=== PATIENT | female | born 1965 | race Caucasian/White ===

== ENCOUNTER 2021-12-04 18:16 | Inpatient (IN) ==
[2021-12-04 19:12] LABS: BASOPHILS % (AUTO) 0.3 % (0.2-1.0); EOSINOPHILS # (AUTO) 0.1 x10^3/uL (0.0-0.2); EOSINOPHILS % (AUTO) 0.6 % (0.9-2.9); HEMOGLOBIN 15.5 g/dL (12.0-16.0); LYMPHOCYTES # (AUTO) 1.6 X10^3/uL (1.3-2.9); LYMPHOCYTES % (AUTO) 16.4 % (21.0-51.0); MEAN CORPUSCULAR HEMOGLOBIN 30.9 pg (27.0-34.0); MEAN CORPUSCULAR HGB CONC 33.7 g/dL (33.0-35.0); MEAN CORPUSCULAR VOLUME 91.8 fL (80.0-100.0); MONOCYTES # (AUTO) 0.8 x10^3/uL (0.3-0.8); MONOCYTES % (AUTO) 8.1 % (0.0-13.0); NEUTROPHILS # (AUTO) 7.1 x10^3/uL (2.2-4.8); NEUTROPHILS % (AUTO) 74.6 % (42.0-75.0); RED BLOOD COUNT 5.01 X10^6/uL (3.5-5.4); WHITE BLOOD COUNT 9.6 X10^3/uL (3.6-10.0)
[2021-12-04 19:23] LABS: ALANINE AMINOTRANSFERASE 51 Units/L (12-78); ALBUMIN 3.9 g/dL (3.4-5.0); ALKALINE PHOSPHATASE 102 Units/L (46-116); AMYLASE 61 Units/L (25-115); ASPARTATE AMINO TRANSFERASE 53 Units/L (15-37); BLOOD UREA NITROGEN 27 mg/dL (7-18); CALCIUM 9.2 mg/dL (8.5-10.1); CARBON DIOXIDE 23.4 mmol/L (21-32); CHLORIDE 99 mmol/L (98-107); CREATININE 1.66 mg/dL (0.55-1.02); LIPASE 50 Units/L (73-393); MAGNESIUM 1.8 mg/dL (1.7-2.9); SODIUM 139 mmol/L (136-145); eGFR NON BLACK RACES 34 (>60)
[2021-12-04] MEDS: DILAUDID INJ IVP PRN (21:15)
[2021-12-04] MEDS: NS 1,000 ML IV 1,000 ML IV SCH (21:15)
[2021-12-04] MEDS: ZOFRAN INJ 4 MG VIAL IVP PRN (21:18)
[2021-12-04 22:07] VITALS: BMI 27.3
[2021-12-04 23:50] LABS: BILIRUBIN,URINE 1+ (NEGATIVE); BLOOD/HEMOGLOBIN,URINE 1+ (NEGATIVE); GLUCOSE, URINE NEGATIVE (NEGATIVE); KETONES,URINE 1+ (NEGATIVE); LEUKOCYTE ESTERASE ,URINE NEGATIVE (NEGATIVE); NITRITES,URINE NEGATIVE (NEGATIVE); PROTEIN,URINE 3+ (NEGATIVE); UROBILINOGEN,URINE NORMAL (NORMAL)
[2021-12-05] LABS: APPEARANCE,URINE CLEAR (CLEAR); COLOR,URINE AMBER (YELLOW)
[2021-12-05 00:01] LABS: BACTERIA,URINE NEGATIVE /HPF (NEGATIVE); CALCIUM OXALATE CRYSTALS,UR MANY /HPF (NEGATIVE); SQUAMOUS EPITHELIAL CELL,UR RARE /HPF (NEGATIVE)
[2021-12-05] MEDS: DILAUDID INJ IVP PRN ×4 (00:20→23:58)
[2021-12-05 06:33] LABS: ALANINE AMINOTRANSFERASE 56 Units/L (12-78); ALKALINE PHOSPHATASE 83 Units/L (46-116); ASPARTATE AMINO TRANSFERASE 56 Units/L (15-37); BLOOD UREA NITROGEN 34 mg/dL (7-18); CARBON DIOXIDE 21.3 mmol/L (21-32); CHLORIDE 106 mmol/L (98-107); COR CA(FOR HYPOALB) 8.8 mg/dL (8.5-10.1); CREATININE 1.75 mg/dL (0.55-1.02); SODIUM 138 mmol/L (136-145); TOTAL PROTEIN 6.3 g/dL (6.4-8.2); eGFR NON BLACK RACES 32 (>60)
[2021-12-05 07:27] LABS: BASOPHILS % (AUTO) 0.5 % (0.2-1.0); EOSINOPHILS # (AUTO) 0.2 x10^3/uL (0.0-0.2); EOSINOPHILS % (AUTO) 3.2 % (0.9-2.9); LYMPHOCYTES # (AUTO) 0.9 X10^3/uL (1.3-2.9); LYMPHOCYTES % (AUTO) 17.9 % (21.0-51.0); MEAN CORPUSCULAR HEMOGLOBIN 30.9 pg (27.0-34.0); MEAN CORPUSCULAR HGB CONC 33.6 g/dL (33.0-35.0); MEAN CORPUSCULAR VOLUME 91.8 fL (80.0-100.0); MEAN PLATELET VOLUME 8.4 fL (7.4-11.0); MONOCYTES # (AUTO) 0.5 x10^3/uL (0.3-0.8); MONOCYTES % (AUTO) 9.4 % (0.0-13.0); NEUTROPHILS # (AUTO) 3.5 x10^3/uL (2.2-4.8); RED BLOOD COUNT 4.03 X10^6/uL (3.5-5.4); RED CELL DISTRIBUTION WIDTH 14.8 % (11.6-16.5); WHITE BLOOD COUNT 5.1 X10^3/uL (3.6-10.0)
[2021-12-05 07:29] LABS: HEMOGLOBIN 12.5 g/dL (12.0-16.0)
[2021-12-05] MEDS: ZOFRAN INJ 4 MG VIAL IVP PRN ×2 (08:01→23:58)
[2021-12-05] MEDS: NS 1,000 ML IV 1,000 ML IV SCH ×2 (10:11→13:25)
--- NOTE | 2021-12-05 14:37 | CT ---
HISTORYABD PAINSTUDYABDOMEN/PELVIS W/O CONCOMPARISONCT performed on 12/04/2021TECHNIQUEMultiple axial images of the abdomen and pelvis were obtained from the lung bases to the pubic symphysis without the administration of IV contrast. Dose reduction techniques including Automated Exposure Control (AEC) and adjustment of mA and kV were utilized.FINDINGS[There is round atelectasis and/or scarring within the left lower lobe.] Heart size is normal. Focal fat infiltration adjacent to the false form ligament. No focal hepatic lesion identified given limitations of a non contrast examination. Previous cholecystectomy. Bile ducts are normal caliber. The spleen, pancreas and adrenal glands are normal. Kidneys are unremarkable. Upper GI tract demonstrates no evidence mass or obstruction. Previously dilated loops of small bowel are collapsed. Previously visualized contrast within the small bowel has progressed into the proximal mid colon without significant residual contrast within the small bowel. Again noted is curvilinear collapsed loop of small bowel within the left lower quadrant.Urinary bladder is partially collapsed. No pelvic or adnexal mass. The rectum and colon are unremarkable. Trace amount of pelvic free fluid. Abdominal aorta is normal in caliber. No adenopathy within the abdomen or pelvis. There is a small ventral abdominal hernia in the setting of prior hernia repair with a small amount of fluid within the umbilical subcutaneous tissues. Review of bone windows demonstrates no acute osseous abnormality. Injection granulomas are noted within the right and left gluteal subcutaneous tissues.IMPRESSIONNo residual fluid dilatation of the small bowel with contrast now within the proximal and mid colon excluding a complete or high-grade small-bowel obstruction. There are persistent curvilinear collapsed loop of small bowel within the left lower quadrant potentially representing an intermittent low-grade obstruction in setting of adhesive disease.Umbilical hernia repair with a small amount of fluid within the tiny residual hernia within the umbilical subcutaneous tissues.Round atelectasis and/or scarring within the left lower lobe.Additional incidental, nonacute findings as described above.Electronically signed by: JULIA ETIENNE (Dec 05, 2021 14:35:13)
[2021-12-05] MEDS ORDERED: VENTOLIN or PROAIR HFA IN PRN (17:52)
[2021-12-05] MEDS ORDERED: PROVENTIL NEB TX 0.083% 2.5MG/ 3ML NEB PRN (18:05)
--- NOTE | 2021-12-05 18:21 | DR.H&P ---
H&P - History & Physical for Day of: H&P Date: 12/04/21 - Chief Complaint Chief Complaint: Abd pain, N/V/C - History of Present Illness History of Present Illness: Patient is a 56 year old white female who is a direct admit from Dr. Maki office due to nausea vomiting, abdominal pain, and no BM in 3 days. States last BM normal. States emesis appears to be bile. Will admit for observation. Patient had an outpatient CT abdomen at [facility]; re quest report. Patient has a history of bowel and constipation issues. PMH Lymphoma, CASSI, MDD, mulitple other conditions. Denies CP, fever, chills or any other conditions. - Past Medical History Past Medical History: Anxiety, Migraines, Hypertension, Seizures Additional Medical History: CML S/P Stem Cell Transplant. - Past Surgical History Surgical History: Appendectomy, Cholecystectomy, Hysterectomy, Tonsillectomy - Family History Family Medical History: Diabetes Mellitus - Social History Does patient currently use any type of tobacco product: No Have you used tobacco products in the last 12 months: No Type of Tobacco Use: None Alcohol Use: None Drug Use: Prescription Drugs - Medications Home Medications: morphine Allergy (Verified 12/05/21 15:05) prednisone Allergy (Verified 12/05/21 15:05) Sulfa (Sulfonamide Antibiotics) [SULFA] Allergy (Verified 12/05/21 15:05) CONTINUE taking the following medications albuterol sulfate [ProAir HFA] 2 puff INHALATION QID PRN 12/05/21 [History] amitriptyline 225 mg PO QHS 12/05/21 [History] baclofen 10 mg PO QHS 12/05/21 [History] buspirone 10 mg PO BID 12/05/21 [History] dicyclomine 10 mg PO TID 12/05/21 [History] famotidine 40 mg PO QAM 12/05/21 [History] gabapentin 600 mg PO TID 12/05/21 [History] hydroxyzine HCl 25 mg PO QID 12/05/21 [History] indomethacin 25 mg PO BID 12/05/21 [History] levetiracetam 1,500 mg PO TID 12/05/21 [History] linaclotide [Linzess] 72 mcg PO QAM 12/05/21 [History] loratadine 10 mg PO DAILY 12/05/21 [History] meclizine 25 mg PO TID PRN 12/05/21 [History] montelukast 10 mg PO DAILY 12/05/21 [History] omeprazole 40 mg PO BID 12/05/21 [History] ondansetron 8 mg PO TID PRN 12/05/21 [History] topiramate 25 mg PO BID 12/05/21 [History] - Review of Systems Constitutional: See HPI Eyes: See HPI ENT: See HPI Respiratory: See HPI Cardiovascular: See HPI Gastrointestinal: See HPI Genitourinary: See HPI Musculoskeletal: See HPI Skin: See HPI Neurological: See HPI - Physical Exam Vital Signs: Temperature 98.2 F Pulse Rate [Left Radial] 76 Respiratory Rate 20 Blood Pressure [Left Arm] 113/57 O2 Sat by Pulse Oximetry 96 Oriented: Normal, Time, Person, Place Eyes: Normal Ear: Normal Nose: Normal Throat: Normal Respiratory: Clear Throughout Cardiovascular: Normal : Normal Auscultation: Bowel Sounds: Decreased Palpation: Normal Tenderness: Diffuse, Mild Skin: Normal Musculoskeletal: Normal Psychiatric: Normal Mood Description: Calm Affect: Normal Speech Pattern: Clear, Appropriate - Assessment/Plan (1) Abdominal pain Status: Acute Plan: Pain control. IV fluids. ProtonixIV. LAbs. NPO. Nausea control. Obtain CT results from [facility] (2) Nausea & vomiting Status: Acute (3) Constipation Status: Acute (4) Anxiety Status: Chronic (5) History of seizures Status: Chronic Plan: home meds (6) GERD (gastroesophageal reflux disease) Status: Chronic - Allergies Allergies/Adverse Reactions: Allergies Allergy/AdvReac Type Severity Reaction Status Date / Time morphine Allergy Verified 12/05/21 15:05 prednisone Allergy Verified 12/05/21 15:05 Sulfa (Sulfonamide Allergy Verified 12/05/21 15:05 Antibiotics) [SULFA]
--- NOTE | 2021-12-05 18:28 | PCM.PROG ---
Progress Note - Subjective Subjective: Patient is a 56 year old female admitted as per HPI. Patient appears comfortable at time of exam; ie not in extreme pain. Minimal nausea and vomiting. Patient continues to experience pain in abdomen, Reports no BM. Pending UGI SBFT. Continue all orders. - Past Medical Family Social History Past Med/Fam/Surg Hx: No changes since H&P Allergies: Allergies morphine Allergy (Verified 12/05/21 15:05) prednisone Allergy (Verified 12/05/21 15:05) Sulfa (Sulfonamide Antibiotics) [SULFA] Allergy (Verified 12/05/21 15:05) - Review of Systems ROS: No change since H&P - Vital Signs and I&O's Vital Signs: Temperature 98.2 F Pulse Rate [Left Radial] 76 Respiratory Rate 20 Blood Pressure [Left Arm] 113/57 O2 Sat by Pulse Oximetry 96 Intake and Output: Intake & Output 12/02/21 12/03/21 12/04/21 12/05/21 23:59 23:59 23:59 23:59 Intake Total 106 / 106 841 / 841 Output Total 300 / 300 Balance -194 / -194 841 / 841 - Physical Exam Oriented: Normal, Time, Person, Place Eyes: Normal Ear: Normal Nose: Normal Throat: Normal Respiratory: Normal Cardiovascular: Normal : Normal Auscultation: Bowel Sounds: Decreased Palpation: Normal Tenderness: Diffuse, Mild Skin: Normal Musculoskeletal: Normal Psychiatric: Normal Mood Description: Calm Affect: Normal Speech Pattern: Clear, Appropriate - Laboratory and Diagnostics Result Diagrams: 12/05/21 06:04 12/05/21 06:04 Labs: Laboratory WBC 5.1 X10^3/uL (3.6-10.0) 12/05/21 06:04 RBC 4.03 X10^6/uL (3.5-5.4) 12/05/21 06:04 Hgb 12.5 g/dL (12.0-16.0) D 12/05/21 06:04 Hct 37.0 % (36.0-47.0) 12/05/21 06:04 MCV 91.8 fL (80.0-100.0) 12/05/21 06:04 MCH 30.9 pg (27.0-34.0) 12/05/21 06:04 MCHC 33.6 g/dL (33.0-35.0) 12/05/21 06:04 RDW 14.8 % (11.6-16.5) 12/05/21 06:04 Plt Count 189 X10^3/uL (150.0-450.0) 12/05/21 06:04 MPV 8.4 fL (7.4-11.0) 12/05/21 06:04 Neut % (Auto) 69.0 % (42.0-75.0) 12/05/21 06:04 Lymph % (Auto) 17.9 % (21.0-51.0) L 12/05/21 06:04 [place] % (Auto) 9.4 % (0.0-13.0) 12/05/21 06:04 Eos % (Auto) 3.2 % (0.9-2.9) H 12/05/21 06:04 Baso % (Auto) 0.5 % (0.2-1.0) 12/05/21 06:04 Neut # (Auto) 3.5 x10^3/uL (2.2-4.8) 12/05/21 06:04 Lymph # (Auto) 0.9 X10^3/uL (1.3-2.9) L 12/05/21 06:04 [place] # (Auto) 0.5 x10^3/uL (0.3-0.8) 12/05/21 06:04 Eos # (Auto) 0.2 x10^3/uL (0.0-0.2) 12/05/21 06:04 Baso # (Auto) 0.0 X10^3/uL (0.0-0.1) 12/05/21 06:04 Absolute Nucleated RBC 0.2 /100WBC 12/05/21 06:04 Sodium 138 mmol/L (136-145) 12/05/21 06:04 Corrected Sodium TNP 12/05/21 06:04 Potassium 4.0 mmol/L (3.5-5.1) 12/05/21 06:04 Chloride 106 mmol/L (98-107) 12/05/21 06:04 Carbon Dioxide 21.3 mmol/L (21-32) 12/05/21 06:04 BUN 34 mg/dL (7-18) H 12/05/21 06:04 Creatinine 1.75 mg/dL (0.55-1.02) H 12/05/21 06:04 Est GFR (MDRD) Af Amer 39 (>60) L 12/05/21 06:04 Est GFR (MDRD) Non-Af 32 (>60) L 12/05/21 06:04 Glucose 84 mg/dL (65-99) 12/05/21 06:04 Calcium 8.0 mg/dL (8.5-10.1) L 12/05/21 06:04 Corrected Calcium 8.8 mg/dL (8.5-10.1) 12/05/21 06:04 Magnesium 1.8 mg/dL (1.7-2.9) 12/04/21 18:54 Total Bilirubin 0.80 mg/dL (0.2-1.0) 12/05/21 06:04 AST 56 Units/L (15-37) H 12/05/21 06:04 ALT 56 Units/L (12-78) 12/05/21 06:04 Alkaline Phosphatase 83 Units/L (46-116) 12/05/21 06:04 Total Protein 6.3 g/dL (6.4-8.2) L 12/05/21 06:04 Albumin 3.0 g/dL (3.4-5.0) L 12/05/21 06:04 Globulin 3.3 g/dL (2.5-4.5) 12/05/21 06:04 Albumin/Globulin Ratio 0.9 Ratio (1.1-2.1) L 12/05/21 06:04 Amylase 61 Units/L (25-115) 12/04/21 18:54 Lipase 50 Units/L (73-393) L 12/04/21 18:54 Specimen Type Clean catch urine 12/04/21 23:12 Urine Color [place] (YELLOW) 12/04/21 23:12 Urine Appearance Clear (CLEAR) 12/04/21 23:12 Urine pH 5.0 (5.0 - 8.0) 12/04/21 23:12 Ur Specific [place] 1.030 (1.000-1.030) 12/04/21 23:12 Urine Protein 3+ (NEGATIVE) 12/04/21 23:12 Urine Glucose (UA) Negative (NEGATIVE) 12/04/21 23:12 Urine Ketones 1+ (NEGATIVE) 12/04/21 23:12 Urine Occult Blood 1+ (NEGATIVE) 12/04/21 23:12 Urine Nitrite Negative (NEGATIVE) 12/04/21 23:12 Urine Bilirubin 1+ (NEGATIVE) 12/04/21 23:12 Urine Urobilinogen Normal (NORMAL) 12/04/21 23:12 Ur Leukocyte Esterase Negative (NEGATIVE) 12/04/21 23:12 Urine RBC 3-5 /HPF (0-3) A 12/04/21 23:12 Urine WBC 0-2 /HPF (0-5) 12/04/21 23:12 Ur Squamous Epith Cells Rare /HPF (NEGATIVE) 12/04/21 23:12 Calcium Oxalate Crystal Many /HPF (NEGATIVE) 12/04/21 23:12 Amorphous Sediment 2+ /HPF (NEGATIVE) 12/04/21 23:12 Urine Bacteria Negative /HPF (NEGATIVE) 12/04/21 23:12 Ur Culture Indicated? No/not indicated 12/04/21 23:12 SARS CoV-2 RNA Rapid ELLIOTT Negative (NEGATIVE) 12/04/21 19:03 - Plan (1) Abdominal pain Status: Acute Plan: Pain control. IV fluids. ProtonixIV. LAbs. NPO. Nausea control. UGI with SBFT pending (2) Nausea & vomiting Status: Acute (3) Constipation Status: Acute (4) Anxiety Status: Chronic (5) History of seizures Status: Chronic Plan: home meds (6) GERD (gastroesophageal reflux disease) Status: Chronic
[2021-12-05] MEDS: KEPPRA TAB 500 MG PO SCH ×2 (18:30→21:21)
[2021-12-05] MEDS: PROTONIX INJ 40 MG VIAL IVP SCH ×2 (18:31→21:20)
[2021-12-06] MEDS: NS 1,000 ML IV 1,000 ML IV SCH ×3 (00:28→13:30)
[2021-12-06] MEDS: KEPPRA TAB 500 MG PO SCH ×2 (05:04→13:30)
[2021-12-06 06:34] LABS: BASOPHILS % (AUTO) 0.6 % (0.2-1.0); EOSINOPHILS # (AUTO) 0.1 x10^3/uL (0.0-0.2); EOSINOPHILS % (AUTO) 2.9 % (0.9-2.9); HEMOGLOBIN 11.6 g/dL (12.0-16.0); LYMPHOCYTES # (AUTO) 0.8 X10^3/uL (1.3-2.9); LYMPHOCYTES % (AUTO) 22.6 % (21.0-51.0); MEAN CORPUSCULAR HEMOGLOBIN 30.6 pg (27.0-34.0); MEAN CORPUSCULAR HGB CONC 33.2 g/dL (33.0-35.0); MEAN PLATELET VOLUME 8.5 fL (7.4-11.0); MONOCYTES # (AUTO) 0.4 x10^3/uL (0.3-0.8); NEUTROPHILS # (AUTO) 2.1 x10^3/uL (2.2-4.8); NEUTROPHILS % (AUTO) 62.9 % (42.0-75.0); RED CELL DISTRIBUTION WIDTH 14.4 % (11.6-16.5); WHITE BLOOD COUNT 3.4 X10^3/uL (3.6-10.0)
[2021-12-06 06:52] LABS: ALANINE AMINOTRANSFERASE 41 Units/L (12-78); ALBUMIN 2.8 g/dL (3.4-5.0); ALKALINE PHOSPHATASE 76 Units/L (46-116); AMYLASE 44 Units/L (25-115); ASPARTATE AMINO TRANSFERASE 27 Units/L (15-37); BLOOD UREA NITROGEN 22 mg/dL (7-18); CALCIUM 7.9 mg/dL (8.5-10.1); CARBON DIOXIDE 22.3 mmol/L (21-32); CHLORIDE 110 mmol/L (98-107); COR CA(FOR HYPOALB) 8.9 mg/dL (8.5-10.1); CREATININE 0.81 mg/dL (0.55-1.02); LIPASE 55 Units/L (73-393); SODIUM 142 mmol/L (136-145); eGFR NON BLACK RACES > 60 (>60)
[2021-12-06] MEDS: DILAUDID INJ IVP PRN ×2 (07:22→15:07)
[2021-12-06] MEDS: ZOFRAN INJ 4 MG VIAL IVP PRN (07:23)
[2021-12-06] MEDS: PROTONIX INJ 40 MG VIAL IVP SCH (08:04)
[2021-12-06] MEDS: CHRONULAC PO SCH ×2 (11:19→13:30)
[2021-12-06] MEDS ORDERED: LINZESS PO ONE ×2 (14:58→16:16)
[2021-12-06] MEDS ORDERED: KEPPRA TAB 500 MG PO ONE (21:30)
[2021-12-06] MEDS ORDERED: PROTONIX INJ 40 MG VIAL IVP ONE (21:30)
[2021-12-06] MEDS ORDERED: CHRONULAC PO ONE (21:30)
[2021-12-06] MEDS ORDERED: ZOFRAN INJ 4 MG VIAL IVP ONE (23:00)
[2021-12-06] MEDS ORDERED: DILAUDID INJ IVP ONE (23:00)
[2021-12-07] MEDS: KEPPRA TAB 500 MG PO SCH ×2 (14:23→21:07)
[2021-12-07] MEDS: DILAUDID INJ IVP PRN ×2 (17:20→20:50)
[2021-12-07] MEDS: ZOFRAN INJ 4 MG VIAL IVP PRN (17:22)
[2021-12-07] MEDS: CHRONULAC PO SCH ×2 (17:23→21:07)
--- NOTE | 2021-12-07 17:38 | PCM.PROG ---
Progress Note Progress Note for Day of Date of Exam: 12/07/21 Subjective Subjective: Patient is a 56 year old female admitted as per HPI. Patient appears comfortable at time of exam; ie not in extreme pain. Minimal nausea and vomiting. Patient continues to experience pain in abdomen, Reports a BM yesterday and earlier in the morning. Continue all orders. Will try and discha rge patient later today if she tolerates solid food. Past Medical Family Social History Past Med/Fam/Surg Hx: No changes since H&P Allergies: Allergies morphine Allergy (Verified 12/05/21 15:05) prednisone Allergy (Verified 12/05/21 15:05) Sulfa (Sulfonamide Antibiotics) [SULFA] Allergy (Verified 12/05/21 15:05) Review of Systems ROS: No change since H&P Vital Signs and I&O's Vital Signs: Temperature 98.1 F Pulse Rate [Left Radial] 78 Respiratory Rate 18 Blood Pressure [Left Arm] 136/67 O2 Sat by Pulse Oximetry 98 Intake and Output: Intake & Output 12/05/21 12/06/21 12/07/21 12/08/21 11:59 11:59 11:59 11:59 Intake Total 527 / 527 [facility] / 2976 860 / 860 1965 Output Total 300 / 300 Balance 227 / 227 [facility] / 2976 860 / 860 1965 Physical Exam Oriented: Normal, Time, Person and Place Eyes: Normal Ear: Normal Nose: Normal Throat: Normal Respiratory: Normal Cardiovascular: Normal : Normal Auscultation: Bowel Sounds: Decreased Tenderness: Diffuse and Mild Skin: Normal Musculoskeletal: Normal Psychiatric: Normal Mood Description: Calm Affect: Normal Speech Pattern: Clear and Appropriate Laboratory and Diagnostics Result Diagrams: 12/06/21 06:10 12/06/21 06:10 Labs: Laboratory WBC 3.4 X10^3/uL (3.6-10.0) L 12/06/21 06:10 RBC 3.80 X10^6/uL (3.5-5.4) 12/06/21 06:10 Hgb 11.6 g/dL (12.0-16.0) L 12/06/21 06:10 Hct 35.0 % (36.0-47.0) L 12/06/21 06:10 MCV 92.0 fL (80.0-100.0) 12/06/21 06:10 MCH 30.6 pg (27.0-34.0) 12/06/21 06:10 MCHC 33.2 g/dL (33.0-35.0) 12/06/21 06:10 RDW 14.4 % (11.6-16.5) 12/06/21 06:10 Plt Count 177 X10^3/uL (150.0-450.0) 12/06/21 06:10 MPV 8.5 fL (7.4-11.0) 12/06/21 06:10 Neut % (Auto) 62.9 % (42.0-75.0) 12/06/21 06:10 Lymph % (Auto) 22.6 % (21.0-51.0) 12/06/21 06:10 [place] % (Auto) 11.0 % (0.0-13.0) 12/06/21 06:10 Eos % (Auto) 2.9 % (0.9-2.9) 12/06/21 06:10 Baso % (Auto) 0.6 % (0.2-1.0) 12/06/21 06:10 Neut # (Auto) 2.1 x10^3/uL (2.2-4.8) L 12/06/21 06:10 Lymph # (Auto) 0.8 X10^3/uL (1.3-2.9) L 12/06/21 06:10 [place] # (Auto) 0.4 x10^3/uL (0.3-0.8) 12/06/21 06:10 Eos # (Auto) 0.1 x10^3/uL (0.0-0.2) 12/06/21 06:10 Baso # (Auto) 0.0 X10^3/uL (0.0-0.1) 12/06/21 06:10 Absolute Nucleated RBC 0.0 /100WBC 12/06/21 06:10 Sodium 142 mmol/L (136-145) 12/06/21 06:10 Corrected Sodium TNP 12/06/21 06:10 Potassium 3.8 mmol/L (3.5-5.1) 12/06/21 06:10 Chloride 110 mmol/L (98-107) H 12/06/21 06:10 Carbon Dioxide 22.3 mmol/L (21-32) 12/06/21 06:10 BUN 22 mg/dL (7-18) H 12/06/21 06:10 Creatinine 0.81 mg/dL (0.55-1.02) 12/06/21 06:10 Est GFR (MDRD) Af Amer > 60 (>60) 12/06/21 06:10 Est GFR (MDRD) Non-Af > 60 (>60) 12/06/21 06:10 Glucose 73 mg/dL (65-99) 12/06/21 06:10 Calcium 7.9 mg/dL (8.5-10.1) L 12/06/21 06:10 Corrected Calcium 8.9 mg/dL (8.5-10.1) 12/06/21 06:10 Magnesium 1.8 mg/dL (1.7-2.9) 12/04/21 18:54 Total Bilirubin 0.40 mg/dL (0.2-1.0) 12/06/21 06:10 AST 27 Units/L (15-37) 12/06/21 06:10 ALT 41 Units/L (12-78) 12/06/21 06:10 Alkaline Phosphatase 76 Units/L (46-116) 12/06/21 06:10 Total Protein 6.0 g/dL (6.4-8.2) L 12/06/21 06:10 Albumin 2.8 g/dL (3.4-5.0) L 12/06/21 06:10 Globulin 3.2 g/dL (2.5-4.5) 12/06/21 06:10 Albumin/Globulin Ratio 0.9 Ratio (1.1-2.1) L 12/06/21 06:10 Amylase 44 Units/L (25-115) 12/06/21 06:10 Lipase 55 Units/L (73-393) L 12/06/21 06:10 Specimen Type Clean catch urine 12/04/21 23:12 Urine Color [place] (YELLOW) 12/04/21 23:12 Urine Appearance Clear (CLEAR) 12/04/21 23:12 Urine pH 5.0 (5.0 - 8.0) 12/04/21 23:12 Ur Specific [place] 1.030 (1.000-1.030) 12/04/21 23:12 Urine Protein 3+ (NEGATIVE) 12/04/21 23:12 Urine Glucose (UA) Negative (NEGATIVE) 12/04/21 23:12 Urine Ketones 1+ (NEGATIVE) 12/04/21 23:12 Urine Occult Blood 1+ (NEGATIVE) 12/04/21 23:12 Urine Nitrite Negative (NEGATIVE) 12/04/21 23:12 Urine Bilirubin 1+ (NEGATIVE) 12/04/21 23:12 Urine Urobilinogen Normal (NORMAL) 12/04/21 23:12 Ur Leukocyte Esterase Negative (NEGATIVE) 12/04/21 23:12 Urine RBC 3-5 /HPF (0-3) A 12/04/21 23:12 Urine WBC 0-2 /HPF (0-5) 12/04/21 23:12 Ur Squamous Epith Cells Rare /HPF (NEGATIVE) 12/04/21 23:12 Calcium Oxalate Crystal Many /HPF (NEGATIVE) 12/04/21 23:12 Amorphous Sediment 2+ /HPF (NEGATIVE) 12/04/21 23:12 Urine Bacteria Negative /HPF (NEGATIVE) 12/04/21 23:12 Ur Culture Indicated? No/not indicated 12/04/21 23:12 SARS CoV-2 RNA Rapid ELLIOTT Negative (NEGATIVE) 12/04/21 19:03 Plan (1) Abdominal pain: Status: Acute Plan: Pain control IV fluids ProtonixIV LAbs NPO Nausea control UGI with SBFT pending (2) Nausea & vomiting: Status: Acute Narrative Support Text: Patient developed Nausea past eating this afternoon. Plan: Will see how patient is doing in am. Will plan on discharge home if she is feeling better. (3) Constipation: Status: Acute Narrative Support Text: Resolved. (4) Anxiety: Status: Chronic Narrative Support Text: Stable. (5) History of seizures: Status: Chronic Plan: home meds (6) GERD (gastroesophageal reflux disease): Status: Chronic
[2021-12-07] MEDS: PROTONIX INJ 40 MG VIAL IVP SCH (20:31)
[2021-12-08] MEDS: CHRONULAC PO SCH ×5 (04:41→21:10)
[2021-12-08] MEDS: DILAUDID INJ IVP PRN ×3 (05:05→21:15)
[2021-12-08] MEDS: ZOFRAN INJ 4 MG VIAL IVP PRN ×3 (05:08→21:20)
[2021-12-08] MEDS: NS 1,000 ML IV 1,000 ML IV SCH ×3 (05:09→21:57)
[2021-12-08] MEDS: KEPPRA TAB 500 MG PO SCH ×3 (05:09→21:10)
[2021-12-08] MEDS: PROTONIX INJ 40 MG VIAL IVP SCH ×2 (08:41→21:10)
--- NOTE | 2021-12-08 08:59 | RAD ---
Exam:KUBIndication: pt states abd is swollen and she is constipatedComparison: [None available]Findings: [Gas distends both the small bowel and colon. Neither demonstrates dilatation. No free air or pneumatosis.No definite mass or abnormal calcification within the abdomen or pelvis.No acute osseous abnormality.Previous cholecystectomy.Impression:Nonspecific bowel gas pattern, gas distention of the small bowel and colon may be within normal limits; however recommend clinical correlation as a mild adynamic ileus is also possible.Electronically signed by: JULIA ETIENNE (Dec 08, 2021 08:57:27)
[2021-12-08] MEDS ORDERED: DULCOLAX SUPPOSITORY 10 MG RECTAL ONE (10:56)
[2021-12-08] MEDS ORDERED: DULCOLAX SUPPOSITORY 10 MG ONE (13:18)
--- NOTE | 2021-12-08 17:10 | PCM.PROG ---
Progress Note Progress Note for Day of Date of Exam: 12/08/21 Subjective Subjective: Patient is a 56 year old female admitted as per HPI. Patient appears comfortable at time of exam; ie not in extreme pain. Reports a BM yesterday and earlier in the morning. Continue all orders. Will try and discharge patient later today if she tolerates solid food. Will check KUB and give Dulcolax suppositories this am. Still with some abdominal pain but better since admission. Past Medical Family Social History Past Med/Fam/Surg Hx: No changes since H&P Allergies: Allergies morphine Allergy (Verified 12/05/21 15:05) prednisone Allergy (Verified 12/05/21 15:05) Sulfa (Sulfonamide Antibiotics) [SULFA] Allergy (Verified 12/05/21 15:05) Review of Systems ROS: No change since H&P Vital Signs and I&O's Vital Signs: Temperature 99.0 F Pulse Rate [Left Radial] 82 Respiratory Rate 20 Blood Pressure [Left Arm] 150/80 O2 Sat by Pulse Oximetry 93 Intake and Output: Intake & Output 12/06/21 12/07/21 12/08/21 12/09/21 11:59 11:59 11:59 11:59 Intake Total 2976 / 2976 860 / 860 3511 / 3511 1053 / 1053 Balance 2976 / 2976 860 / 860 3511 / 3511 1053 / 1053 Physical Exam Oriented: Normal, Time, Person and Place Eyes: Normal Ear: Normal Nose: Normal Throat: Normal Respiratory: Normal Cardiovascular: Normal : Normal Auscultation: Bowel Sounds: Decreased Tenderness: Diffuse and Mild Skin: Normal Musculoskeletal: Normal Psychiatric: Normal Mood Description: Calm Affect: Normal Speech Pattern: Clear and Appropriate Laboratory and Diagnostics Result Diagrams: 12/06/21 06:10 12/06/21 06:10 Labs: Laboratory WBC 3.4 X10^3/uL (3.6-10.0) L 12/06/21 06:10 RBC 3.80 X10^6/uL (3.5-5.4) 12/06/21 06:10 Hgb 11.6 g/dL (12.0-16.0) L 12/06/21 06:10 Hct 35.0 % (36.0-47.0) L 12/06/21 06:10 MCV 92.0 fL (80.0-100.0) 12/06/21 06:10 MCH 30.6 pg (27.0-34.0) 12/06/21 06:10 MCHC 33.2 g/dL (33.0-35.0) 12/06/21 06:10 RDW 14.4 % (11.6-16.5) 12/06/21 06:10 Plt Count 177 X10^3/uL (150.0-450.0) 12/06/21 06:10 MPV 8.5 fL (7.4-11.0) 12/06/21 06:10 Neut % (Auto) 62.9 % (42.0-75.0) 12/06/21 06:10 Lymph % (Auto) 22.6 % (21.0-51.0) 12/06/21 06:10 [place] % (Auto) 11.0 % (0.0-13.0) 12/06/21 06:10 Eos % (Auto) 2.9 % (0.9-2.9) 12/06/21 06:10 Baso % (Auto) 0.6 % (0.2-1.0) 12/06/21 06:10 Neut # (Auto) 2.1 x10^3/uL (2.2-4.8) L 12/06/21 06:10 Lymph # (Auto) 0.8 X10^3/uL (1.3-2.9) L 12/06/21 06:10 [place] # (Auto) 0.4 x10^3/uL (0.3-0.8) 12/06/21 06:10 Eos # (Auto) 0.1 x10^3/uL (0.0-0.2) 12/06/21 06:10 Baso # (Auto) 0.0 X10^3/uL (0.0-0.1) 12/06/21 06:10 Absolute Nucleated RBC 0.0 /100WBC 12/06/21 06:10 Sodium 142 mmol/L (136-145) 12/06/21 06:10 Corrected Sodium TNP 12/06/21 06:10 Potassium 3.8 mmol/L (3.5-5.1) 12/06/21 06:10 Chloride 110 mmol/L (98-107) H 12/06/21 06:10 Carbon Dioxide 22.3 mmol/L (21-32) 12/06/21 06:10 BUN 22 mg/dL (7-18) H 12/06/21 06:10 Creatinine 0.81 mg/dL (0.55-1.02) 12/06/21 06:10 Est GFR (MDRD) Af Amer > 60 (>60) 12/06/21 06:10 Est GFR (MDRD) Non-Af > 60 (>60) 12/06/21 06:10 Glucose 73 mg/dL (65-99) 12/06/21 06:10 Calcium 7.9 mg/dL (8.5-10.1) L 12/06/21 06:10 Corrected Calcium 8.9 mg/dL (8.5-10.1) 12/06/21 06:10 Magnesium 1.8 mg/dL (1.7-2.9) 12/04/21 18:54 Total Bilirubin 0.40 mg/dL (0.2-1.0) 12/06/21 06:10 AST 27 Units/L (15-37) 12/06/21 06:10 ALT 41 Units/L (12-78) 12/06/21 06:10 Alkaline Phosphatase 76 Units/L (46-116) 12/06/21 06:10 Total Protein 6.0 g/dL (6.4-8.2) L 12/06/21 06:10 Albumin 2.8 g/dL (3.4-5.0) L 12/06/21 06:10 Globulin 3.2 g/dL (2.5-4.5) 12/06/21 06:10 Albumin/Globulin Ratio 0.9 Ratio (1.1-2.1) L 12/06/21 06:10 Amylase 44 Units/L (25-115) 12/06/21 06:10 Lipase 55 Units/L (73-393) L 12/06/21 06:10 Specimen Type Clean catch urine 12/04/21 23:12 Urine Color [place] (YELLOW) 12/04/21 23:12 Urine Appearance Clear (CLEAR) 12/04/21 23:12 Urine pH 5.0 (5.0 - 8.0) 12/04/21 23:12 Ur Specific [place] 1.030 (1.000-1.030) 12/04/21 23:12 Urine Protein 3+ (NEGATIVE) 12/04/21 23:12 Urine Glucose (UA) Negative (NEGATIVE) 12/04/21 23:12 Urine Ketones 1+ (NEGATIVE) 12/04/21 23:12 Urine Occult Blood 1+ (NEGATIVE) 12/04/21 23:12 Urine Nitrite Negative (NEGATIVE) 12/04/21 23:12 Urine Bilirubin 1+ (NEGATIVE) 12/04/21 23:12 Urine Urobilinogen Normal (NORMAL) 12/04/21 23:12 Ur Leukocyte Esterase Negative (NEGATIVE) 12/04/21 23:12 Urine RBC 3-5 /HPF (0-3) A 12/04/21 23:12 Urine WBC 0-2 /HPF (0-5) 12/04/21 23:12 Ur Squamous Epith Cells Rare /HPF (NEGATIVE) 12/04/21 23:12 Calcium Oxalate Crystal Many /HPF (NEGATIVE) 12/04/21 23:12 Amorphous Sediment 2+ /HPF (NEGATIVE) 12/04/21 23:12 Urine Bacteria Negative /HPF (NEGATIVE) 12/04/21 23:12 Ur Culture Indicated? No/not indicated 12/04/21 23:12 SARS CoV-2 RNA Rapid ELLIOTT Negative (NEGATIVE) 12/04/21 19:03 Radiology Reviewed: Yes Plan (1) Abdominal pain: Status: Acute Plan: Pain control IV fluids ProtonixIV LAbs NPO Nausea control UGI with SBFT pending (2) Nausea & vomiting: Status: Acute Plan: Will see how patient is doing in am. Will plan on discharge home if she is feeling better. (3) Constipation: Status: Acute (4) Anxiety: Status: Chronic (5) History of seizures: Status: Chronic Plan: home meds (6) GERD (gastroesophageal reflux disease): Status: Chronic
[2021-12-09] MEDS: NS 1,000 ML IV 1,000 ML IV SCH ×4 (01:24→15:51)
[2021-12-09] MEDS: CHRONULAC PO SCH ×5 (03:45→15:52)
[2021-12-09 06:04] LABS: BASOPHILS % (AUTO) 0.5 % (0.2-1.0); EOSINOPHILS # (AUTO) 0.2 x10^3/uL (0.0-0.2); EOSINOPHILS % (AUTO) 7.2 % (0.9-2.9); HEMATOCRIT 36.6 % (36.0-47.0); HEMOGLOBIN 12.4 g/dL (12.0-16.0); LYMPHOCYTES # (AUTO) 1.2 X10^3/uL (1.3-2.9); LYMPHOCYTES % (AUTO) 34.5 % (21.0-51.0); MEAN CORPUSCULAR HEMOGLOBIN 30.8 pg (27.0-34.0); MEAN CORPUSCULAR HGB CONC 33.9 g/dL (33.0-35.0); MONOCYTES # (AUTO) 0.5 x10^3/uL (0.3-0.8); MONOCYTES % (AUTO) 13.5 % (0.0-13.0); NEUTROPHILS # (AUTO) 1.5 x10^3/uL (2.2-4.8); NEUTROPHILS % (AUTO) 44.3 % (42.0-75.0); RED BLOOD COUNT 4.02 X10^6/uL (3.5-5.4); RED CELL DISTRIBUTION WIDTH 14.2 % (11.6-16.5); WHITE BLOOD COUNT 3.3 X10^3/uL (3.6-10.0)
[2021-12-09 06:11] LABS: BLOOD UREA NITROGEN 3 mg/dL (7-18); CALCIUM 8.2 mg/dL (8.5-10.1); CARBON DIOXIDE 23.6 mmol/L (21-32); CHLORIDE 108 mmol/L (98-107); CREATININE 0.64 mg/dL (0.55-1.02); SODIUM 142 mmol/L (136-145); eGFR NON BLACK RACES > 60 (>60)
[2021-12-09] MEDS ORDERED: K-DUR TAB 20 MEQ PO PRN (06:22)
[2021-12-09] MEDS ORDERED: KLOR-CON PO PRN (06:22)
[2021-12-09] MEDS ORDERED: POTASSIUM CHLORIDE LIQ 20 MEQ UDC PO PRN (06:22)
[2021-12-09] MEDS ORDERED: K-RIDER 10 MEQ/NS 100 ML 10 MEQ/100 ML BAG IV PRN (06:22)
[2021-12-09] MEDS ORDERED: POTASSIUM CHL 60 MEQ/NS 0.45% 500 ML IV PRN (06:22)
[2021-12-09] MEDS ORDERED: POTASSIUM CHL 40 MEQ/NS 0.45% 500 ML IV PRN (06:22)
[2021-12-09] MEDS ORDERED: MICRO K EXTEN CAP 10 MEQ PO PRN (06:22)
[2021-12-09] MEDS: PROTONIX INJ 40 MG VIAL IVP SCH ×2 (06:23→09:00)
[2021-12-09] MEDS: KEPPRA TAB 500 MG PO SCH ×3 (06:23→15:53)
[2021-12-09 06:34] LABS: ALANINE AMINOTRANSFERASE 28 Units/L (12-78); ALBUMIN 2.7 g/dL (3.4-5.0); ALKALINE PHOSPHATASE 83 Units/L (46-116); ASPARTATE AMINO TRANSFERASE 22 Units/L (15-37); COR CA(FOR HYPOALB) 9.2 mg/dL (8.5-10.1)
[2021-12-09] MEDS: DILAUDID INJ IVP PRN (11:10)
[2021-12-09] MEDS: ZOFRAN INJ 4 MG VIAL IVP PRN (11:10)
[2021-12-09 12:59] VITALS: BP 136/79
--- NOTE | 2021-12-16 14:34 | PCM.PROG ---
Progress Note - Progress Note for Day of Date of Exam: 12/06/21 - Subjective Subjective: Patient is a 56 year old female admitted as per HPI. Patient appears comfortable at time of exam; ie not in extreme pain. Continue all orders. Patient is receiving lactulose; pending BM. - Past Medical Family Social History Past Med/Fam/Surg Hx: No changes since H&P Allergies: Allergies morphine Allergy (Verified 12/05/21 15:05) prednisone Allergy (Verified 12/05/21 15:05) Sulfa (Sulfonamide Antibiotics) [SULFA] Allergy (Verified 12/05/21 15:05) - Review of Systems ROS: No change since H&P - Vital Signs and I&O's Vital Signs: Temperature 98.3 F Pulse Rate [Left Radial] 80 Respiratory Rate 18 Blood Pressure [Left Arm] 136/79 O2 Sat by Pulse Oximetry 94 - Physical Exam Oriented: Normal, Time, Person, Place Eyes: Normal Ear: Normal Nose: Normal Throat: Normal Respiratory: Normal Cardiovascular: Normal : Normal Auscultation: Bowel Sounds: Decreased Palpation: Normal Tenderness: Diffuse, Mild Skin: Normal Musculoskeletal: Normal Psychiatric: Normal Mood Description: Calm Affect: Normal Speech Pattern: Clear, Appropriate - Laboratory and Diagnostics Result Diagrams: 12/09/21 05:45 12/09/21 12:46 Labs: Laboratory WBC 3.3 X10^3/uL (3.6-10.0) L 12/09/21 05:45 RBC 4.02 X10^6/uL (3.5-5.4) 12/09/21 05:45 Hgb 12.4 g/dL (12.0-16.0) 12/09/21 05:45 Hct 36.6 % (36.0-47.0) 12/09/21 05:45 MCV 91.0 fL (80.0-100.0) 12/09/21 05:45 MCH 30.8 pg (27.0-34.0) 12/09/21 05:45 MCHC 33.9 g/dL (33.0-35.0) 12/09/21 05:45 RDW 14.2 % (11.6-16.5) 12/09/21 05:45 Plt Count 145 X10^3/uL (150.0-450.0) L 12/09/21 05:45 MPV 9.0 fL (7.4-11.0) 12/09/21 05:45 Neut % (Auto) 44.3 % (42.0-75.0) 12/09/21 05:45 Lymph % (Auto) 34.5 % (21.0-51.0) 12/09/21 05:45 [place] % (Auto) 13.5 % (0.0-13.0) H 12/09/21 05:45 Eos % (Auto) 7.2 % (0.9-2.9) H 12/09/21 05:45 Baso % (Auto) 0.5 % (0.2-1.0) 12/09/21 05:45 Neut # (Auto) 1.5 x10^3/uL (2.2-4.8) L 12/09/21 05:45 Lymph # (Auto) 1.2 X10^3/uL (1.3-2.9) L 12/09/21 05:45 [place] # (Auto) 0.5 x10^3/uL (0.3-0.8) 12/09/21 05:45 Eos # (Auto) 0.2 x10^3/uL (0.0-0.2) 12/09/21 05:45 Baso # (Auto) 0.0 X10^3/uL (0.0-0.1) 12/09/21 05:45 Absolute Nucleated RBC 0.2 /100WBC 12/09/21 05:45 Sodium 142 mmol/L (136-145) 12/09/21 05:45 Corrected Sodium TNP 12/09/21 05:45 Potassium 3.6 mmol/L (3.5-5.1) 12/09/21 12:46 Chloride 108 mmol/L (98-107) H 12/09/21 05:45 Carbon Dioxide 23.6 mmol/L (21-32) 12/09/21 05:45 BUN 3 mg/dL (7-18) L 12/09/21 05:45 Creatinine 0.64 mg/dL (0.55-1.02) 12/09/21 05:45 Est GFR (MDRD) Af Amer > 60 (>60) 12/09/21 05:45 Est GFR (MDRD) Non-Af > 60 (>60) 12/09/21 05:45 Glucose 95 mg/dL (65-99) 12/09/21 05:45 Calcium 8.2 mg/dL (8.5-10.1) L 12/09/21 05:45 Corrected Calcium 9.2 mg/dL (8.5-10.1) 12/09/21 05:45 Magnesium 1.5 mg/dL (1.7-2.9) L 12/09/21 05:45 Total Bilirubin 0.20 mg/dL (0.2-1.0) 12/09/21 05:45 AST 22 Units/L (15-37) 12/09/21 05:45 ALT 28 Units/L (12-78) 12/09/21 05:45 Alkaline Phosphatase 83 Units/L (46-116) 12/09/21 05:45 Total Protein 6.0 g/dL (6.4-8.2) L 12/09/21 05:45 Albumin 2.7 g/dL (3.4-5.0) L 12/09/21 05:45 Globulin 3.3 g/dL (2.5-4.5) 12/09/21 05:45 Albumin/Globulin Ratio 0.8 Ratio (1.1-2.1) L 12/09/21 05:45 Amylase 44 Units/L (25-115) 12/06/21 06:10 Lipase 55 Units/L (73-393) L 12/06/21 06:10 Specimen Type Clean catch urine 12/04/21 23:12 Urine Color Ashleigh (YELLOW) 12/04/21 23:12 Urine Appearance Clear (CLEAR) 12/04/21 23:12 Urine pH 5.0 (5.0 - 8.0) 12/04/21 23:12 Ur Specific [place] 1.030 (1.000-1.030) 12/04/21 23:12 Urine Protein 3+ (NEGATIVE) 12/04/21 23:12 Urine Glucose (UA) Negative (NEGATIVE) 12/04/21 23:12 Urine Ketones 1+ (NEGATIVE) 12/04/21 23:12 Urine Occult Blood 1+ (NEGATIVE) 12/04/21 23:12 Urine Nitrite Negative (NEGATIVE) 12/04/21 23:12 Urine Bilirubin 1+ (NEGATIVE) 12/04/21 23:12 Urine Urobilinogen Normal (NORMAL) 12/04/21 23:12 Ur Leukocyte Esterase Negative (NEGATIVE) 12/04/21 23:12 Urine RBC 3-5 /HPF (0-3) A 12/04/21 23:12 Urine WBC 0-2 /HPF (0-5) 12/04/21 23:12 Ur Squamous Epith Cells Rare /HPF (NEGATIVE) 12/04/21 23:12 Calcium Oxalate Crystal Many /HPF (NEGATIVE) 12/04/21 23:12 Amorphous Sediment 2+ /HPF (NEGATIVE) 12/04/21 23:12 Urine Bacteria Negative /HPF (NEGATIVE) 12/04/21 23:12 Ur Culture Indicated? No/not indicated 12/04/21 23:12 SARS CoV-2 RNA Rapid ELLIOTT Negative (NEGATIVE) 12/04/21 19:03 - Plan (1) Abdominal pain Status: Acute Plan: Pain control. IV fluids. ProtonixIV. LAbs. NPO. Nausea control. UGI with SBFT pending (2) Nausea & vomiting Status: Acute Plan: Improving (3) Constipation Status: Acute Qualifiers: Constipation type: slow transit constipation Qualified Code(s): K59.01 - Slow transit constipation (4) Anxiety Status: Chronic (5) History of seizures Status: Chronic Plan: home meds (6) GERD (gastroesophageal reflux disease) Status: Chronic
--- NOTE | 2021-12-16 14:39 | W.DIS.FURT ---
Discharge Plan - Discharge Plan Hospital Course: Admit date 12/05/21 Discharge date 12/09/21 DOS 12/09/21 Admit diagnosis: 1) Abdominal pain (2) Nausea & vomiting (3) Constipation (4) Anxiety (5) History of seizures (6) GERD (gastroesophageal reflux disease) Discharge diagnosis: Same Hospital Course Patient is a 56 year old female who was admitted due to abdominal pain, N/V. Patient has chronic constipation,; multifactoral; likely related to history of abdominal surgery as well as medication induced. Patient was made NPO and given IV fluids. Abdominal imaging did not reveal obstruction. Diet was progressed as tolerated. Patient was given lactulose. Patient had several adequate BMs and tolerated diet and liquids. Patient was discharged home to follow up in office in 1 week. See med rec. Disposition: HOME, SELF-CARE Condition: Stable Health Concerns: Post Hospitalization: new medications and changes needed to prevent readmission or further decline. Pt educated and given instructions on all concerns. Plan of Treatment: Continue with present treatment and follow up plan. Pt is to keep follow up appointment as instructed and take medications as ordered. Prescriptions: New lactulose 20 gram/30 mL Solution 20 g PO PRN PRNQty: 120 RF: 1 Transmission Status: Received by [id number] Ronald Linzess 145 mcg Capsule 145 mcg PO QAM 30 Days Qty: 30 RF: 0 Transmission Status: Received by [id number] Ronald Continued albuterol sulfate [ProAir HFA] 90 mcg/actuation Hfa Aerosol Inhaler 2 puff INHALATION QID PRN amitriptyline 150 mg Tablet 225 mg PO QHS baclofen 10 mg Tablet 10 mg PO QHS buspirone 10 mg Tablet 10 mg PO BID dicyclomine 10 mg Capsule 10 mg PO TID famotidine 40 mg Tablet 40 mg PO QAM gabapentin 600 mg Tablet 600 mg PO TID hydroxyzine HCl 25 mg Tablet 25 mg PO QID indomethacin 25 mg Capsule 25 mg PO BID levetiracetam 1,000 mg Tablet 1,500 mg PO TID Linzess 72 mcg Capsule 72 mcg PO QAM loratadine 10 mg Tablet 10 mg PO DAILY meclizine 25 mg Tablet 25 mg PO TID PRN montelukast 10 mg Tablet 10 mg PO DAILY omeprazole 40 mg Capsule,Delayed Release(Dr/Ec) 40 mg PO BID ondansetron 8 mg Tablet,Disintegrating 8 mg PO TID PRN topiramate 25 mg Tablet 25 mg PO BID - Follow ups/Referrals Follow ups/Referrals: JESSICA MANNING [Primary Care Provider] - 12/16/21 10:00 am - Instructions Instructions: Constipation, Adult, [id number], Hypertension, Adult, [id number], Gastroesophageal Reflux Disease, Adult, [id number], Syncope, [id number], Hypertension Forms: Excuse From Work or School, Precautions for COVID19, [facility], Patient Portal, Social Distancing Print Language: HEBREW
== END 2021-12-09 16:10 | disposition home or self-care (01) | DRG 392 ==
LOC: MED/SURG
PROVIDERS: ADMIT Internal Medicine; ATTEND Internal Medicine